=== PATIENT | female | born 1995 | race American Indian/Alaskan Native ===

== ENCOUNTER 2017-01-26 19:32 | Emergency (ER) | payer OTHER, BC ==
[2017-01-26 19:43] VITALS: BP 162/87
--- NOTE | 2017-01-26 19:46 | ER Document Report ---
ED Medical Screen (RME) - General Stated Complaint: FALL HEAD INJURY Mode of Arrival: Ambulatory Information source: Patient Notes: Pt presents to the ED after falling over a ladder at work at 1500. Pt reports she hit her head on concrete floor at foot action. Pt has small abrasion to right frontal area and scratch to her back. Denies change in LOC. Reports she is tired. Nausea due to menses. Pt took ibuprofen. I have greeted and performed a rapid initial assessment of this patient. A comprehensive ED assessment and evaluation of the patient, analysis of test results and completion of the medical decision making process will be conducted by additional ED providers. TRAVEL OUTSIDE OF THE [place] IN LAST 30 DAYS: No - Related Data Allergies/Adverse Reactions: No Known Allergies Allergy (Verified 02/24/13 07:36) Past Medical History - Immunizations Immunizations up to date: Yes Hx Diphtheria, Pertussis, Tetanus Vaccination: Yes
--- NOTE | 2017-01-26 23:43 | ER Document Report ---
ED General - General Chief Complaint: Head Injury without LOC Stated Complaint: FALL HEAD INJURY Mode of Arrival: Ambulatory Notes: Patient is a 21-year-old female presents for complaint of falling and hitting her head. She fell over a ladder. She hit the right front part of her head on concrete. No loss of consciousness. No vomiting. She says she initially had a headache but this has since improved. This injury occurred on and a half hours ago. She denies focal weakness or numbness. She says she's feeling improved. She is not on blood thinners. She is otherwise healthy. TRAVEL OUTSIDE OF THE [place] IN LAST 30 DAYS: No - Related Data Allergies/Adverse Reactions: No Known Allergies Allergy (Verified 02/24/13 07:36) Past Medical History - General Information source: Patient - Social History Smoking Status: Never Smoker Chew tobacco use (# tins/day): No Frequency of alcohol use: None Drug Abuse: None Family History: Malignancy Patient has suicidal ideation: No Patient has homicidal ideation: No Renal/ Medical History: Denies: Hx Peritoneal Dialysis - Immunizations Immunizations up to date: Yes Hx Diphtheria, Pertussis, Tetanus Vaccination: Yes Review of Systems - Review of Systems Notes: My Normal Review Basic REVIEW OF SYSTEMS: CONSTITUTIONAL : Denies fever, chills, or sweats. Denies recent illness. GASTROINTESTINAL: Denies abdominal pain. Denies nausea, vomiting, or diarrhea. Denies constipation. Last BM: MUSCULOSKELETAL: Denies neck or back pain or joint pain or swelling. SKIN: Denies rash or skin lesions. HEMATOLOGIC : Denies easy bruising or bleeding. NEUROLOGICAL: Denies altered mental status or loss of consciousness. Improving headache. Denies weakness or paralysis or loss of use of either side. Denies problems with gait or speech. Denies sensory or motor loss. ALL OTHER SYSTEMS REVIEWED AND NEGATIVE. Physical Exam - Vital signs Vitals: Temp Pulse Resp BP Pulse Ox 98.6 F 71 16 162/87 H 100 01/26/17 19:41 01/26/17 19:41 01/26/17 19:41 01/26/17 19:41 01/26/17 19:41 - Notes Notes: General Appearance: Well nourished, alert, cooperative, no acute distress, no obvious discomfort. Vitals: reviewed, See vital signs table. Head: Very tiny superficial abrasion to the right upper forehead. No surrounding swelling or hematoma. Eyes: PERRL, EOMI, Conjuctiva clear Mouth: No decreasd moisture Neck: Supple, no neck tenderness, no step-offs or deformities to cervical spine. Full range of motion of neck without pain. Lungs: No wheezing, No rales, No rhonci, No accessory muscle use, good air exchange bilaterally. Heart: Normal rate, Regular rythm, No murmur, no rub Back: Small abrasion over the mid lower thoracic spine. No step-offs or deformities to the thoracic or lumbar spine. Some mild pain over palpation of the abrasion. Extremities: strength 5/5 in all extremities, good pulses in all extremities, no swelling or tenderness in the extremities, no edema. Skin: warm, dry, appropriate color, no rash Neuro: speech clear, oriented x 3, normal affect, responds appropriately to questions. Cranial nerves II through XII are intact. Distal sensation intact. Normal Romberg. Normal gait. Course - Vital Signs Vital signs: Temp Pulse Resp BP Pulse Ox 98.6 F 71 16 162/87 H 100 01/26/17 19:41 01/26/17 19:41 01/26/17 19:41 01/26/17 19:41 01/26/17 19:41 - Transfer of Care Notes: 01/27/17 00:01 Patient is completely neurologically intact well-appearing. She initially had a headache after the fall but this has since improved. She has no bleeding risks. She's on no blood thinners. She has no concerning neurologic signs that would cause me to obtain a CT scan. She's had no vomiting, no loss of consciousness, she initiated headache but this is much improved. At this time I feel she is safe to be discharged home. I gave her strict return precautions. I encouraged return to ER immediately if she has worsening headache, vomiting, difficulty kneeling, or feels unwell in any way. Patient agrees with plan and will be discharged home. Dictation of this chart was performed using voice recognition software; therefore, there may be some unintended grammatical errors. Discharge - Discharge Clinical Impression: Minor head injury without loss of consciousness Qualifiers: Encounter type: initial encounter Qualified Code(s): S09.90XA - Unspecified injury of head, initial encounter Condition: Good Disposition: HOME, SELF-CARE Additional Instructions: Head Injury Precautions At this point, there is no evidence that your head injury is serious. Observation is necessary, however. Take only clear liquids for the first few hours, unless told otherwise by the doctor. If no pain medication was prescribed, you may take acetaminophen according to the directions on the bottle. Do not take any medication that may alter your level of alertness (unless you've discussed it with the doctor first) . Limit activity for the first 24 hours. Bed rest is best. During the first 24 hours, check to see approximately every two to three hours that the patient is easily arousable, responds normally, and can perform common tasks such as walking without difficulty. Contact your doctor or go to the hospital if any of the following things occur: Persistent vomiting, difficulty in arousing the patient, worsening or continued headache, or failure to improve as expected. Head injuries can cause symptoms that persist for a few days or even a few weeks.
== END 2017-01-27 | disposition home or self-care (01) ==
LOC: ER 19:32
DX: S09.90XA Unspecified injury of head, initial encounter (principal); R51 Headache; W19.XXXA Unspecified fall, initial encounter
CPT/HCPCS: 99283